=== PATIENT | male | born 1995 | race Caucasian/White ===

== ENCOUNTER 2021-12-05 17:45 | Emergency (ER) | payer OTHER ==
[~2021-12-05] VITALS: Ht 172.7 cm; Wt 78.0 kg
[2021-12-05 18:00] VITALS: BP 133/97
--- NOTE | 2021-12-05 18:13 | NUR ---
pt placed on ccollar in triage and wheelchair assist to room 01. Dr Roland made aware of pt confusion
[2021-12-05] MEDS ORDERED: ONDANSETRON 4 MG/2 ML VIAL IVP ONE (18:15)
[2021-12-05] MEDS ORDERED: NACL 0.9% 1,000 ML IV ONE (18:15)
[2021-12-05] MEDS ORDERED: MORPHINE SULFATE 4 MG/ML SYR IVP ONE (18:15)
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
--- NOTE | 2021-12-05 18:20 | NUR ---
LAB AT BEDSIDE
--- NOTE | 2021-12-05 18:30 | NUR ---
DR YANG AT BEDSIDE FOR EVALUATION
[2021-12-05 18:31] LABS: BASOPHILS # (AUTO) 0.1 K/uL (0.00-0.22); BASOPHILS % (AUTO) 0.4 % (0.0-2.0); EOSINOPHILS # (AUTO) 0.1 K/uL (0-0.4); EOSINOPHILS % (AUTO) 1.1 % (0.0-4.0); HEMOGLOBIN 14.1 g/dL (12.0-18.0); LYMPHOCYTES # (AUTO) 1.8 K/uL (2.0-11.5); LYMPHOCYTES % (AUTO) 12.7 % (20.5-51.1); MEAN CORPUSCULAR HEMOGLOBIN 30 pg (27-31); MEAN CORPUSCULAR HGB CONC 34 g/dL (33-37); MEAN CORPUSCULAR VOLUME 88.1 fL (80-94); MONOCYTES # (AUTO) 0.9 K/uL (0.8-1.0); MONOCYTES % (AUTO) 6.7 % (1.7-9.3); NEUTROPHILS % (AUTO) 79.1 % (42.2-75.2); PLATELET COUNT (AUTO) 270 K/uL (140-450); RED BLOOD CELL COUNT(AUTO) 4.77 MIL/uL (4.20-6.10); WHITE BLOOD COUNT (AUTO) 13.9 K/uL (4.8-10.8)
[2021-12-05 18:56] LABS: ALBUMIN 3.9 g/dL (3.4-5.0); CARBON DIOXIDE 26.7 mmol/L (21-32); CREATININE 0.9 mg/dL (0.6-1.3); POTASSIUM 4.7 mmol/L (3.5-5.1); TOTAL BILIRUBIN 0.2 mg/dL (0.0-1.0)
[2021-12-05] MEDS ORDERED: LACTATED RINGERS 1,000 ML IV ONE (19:15)
--- NOTE | 2021-12-05 19:26 | NUR ---
Pt report given to LORENZA Reyes. Transfer of care at this time.
--- NOTE | 2021-12-05 19:38 | NUR ---
PT TAKEN TO CT VIA [facility]
[2021-12-05 20:06] LABS: ALBUMIN 3.8 g/dL (3.4-5.0); CARBON DIOXIDE 25.6 mmol/L (21-32); CREATININE 0.9 mg/dL (0.6-1.3); TOTAL BILIRUBIN 0.3 mg/dL (0.0-1.0)
--- NOTE | 2021-12-05 20:16 | NUR ---
PT RETURNED FROM CT
[2021-12-05] MEDS ORDERED: IBUP-2213 PO (21:11)
[2021-12-05] MEDS ORDERED: CYCL-711 PO (21:11)
[2021-12-05 22:15] LABS: ANION GAP 14.3 (8-16); POTASSIUM 3.9 mmol/L (3.5-5.1)
--- NOTE | 2021-12-05 22:24 | NUR ---
dr major examining pt
[2021-12-06 00:34] VITALS: BP 111/49
--- NOTE | 2021-12-06 00:34 | NUR ---
Patient discharged with v/s stable. Written and verbal after care instructions given and explained. Patient alert, oriented and verbalized understanding of instructions. Ambulatory with steady gait. All questions addressed prior to discharge. ID band removed. Patient advised to follow up with PMD. Rx of FLEXERIL AND IBUPROFEN given. Patient educated on indication of medication including possible reaction and side effects. Opportunity to ask questions provided and answered. VSS, A/OX4, UNLABORED BREATHING, AMBULATORY, AND CALM DEMEANOR.
[2021-12-06] MEDS ORDERED: LACTATED RINGERS 1,000 ML IV ONE (19:15)
== END 2021-12-06 00:34 | disposition home or self-care (01) ==
LOC: MED 17:45
DX: S06.0X1A Concussion with loss of consciousness of 30 minutes or less, initial encounter (principal); S70.01XA Contusion of right hip, initial encounter; E87.0 Hyperosmolality and hypernatremia; Z79.899 Other long term (current) drug therapy; V87.8XXA Person injured in other specified noncollision transport accidents involving motor vehicle (traffic), initial encounter; Y93.89 Activity, other specified; Y92.89 Other specified places as the place of occurrence of the external cause; Y99.8 Other external cause status
CPT/HCPCS: 36415; 70450; 71260; 72125; 74177; 80053; 85025; 96361; 96374; 96375; 99291; 99292; J2270; J2405; J7120; Q9967